=== PATIENT | female | born 1980 | race Caucasian/White ===

== ENCOUNTER 2019-07-16 14:17 | Emergency (ER) | payer SELFPAY ==
[2019-07-16 14:19] VITALS: BMI 26.5
--- NOTE | 2019-07-16 14:21 | ED_ITS ---
Entered by Nina Raman, acting as scribe for Horacio Mayer MD HPI - Psych General: Chief Complaint: Alcohol Stated Complaint: MHE Time Seen by Provider: 07/16/19 14:19 History of Present Illness: HPI Narrative: 38 yo female presents to ED with police. The patient will not answer any questions that was asked, except for correcting the officer of her correct address. The police stated the patient has been hostile - fighting and kicking the police. The officer stated the patient told police several times that she just wanted to end it. The police said they were called because the patient was in someone's back yard in [place] and when the police arrived, she began fighting. After they got the patient in the police car, the patient nearly kicked out the window of the car. The patient is under the influence of an unknown substance. complaint: altered mental status Onset (ago): hour(s) (1) Duration: constant Relieving factors: none Exacerbating factors: alcohol Context: recent alcohol abuse Associated symptoms: Reports depression and suicidal ideation Treatments prior to arrival: physical restraints Review of Systems Const: Denies: fever or chills Eyes: Denies: change in vision ENMT: Denies: throat pain or mouth pain Card: Denies: chest pain Resp: Denies: shortness of breath GI: Denies: abdominal pain, nausea, vomiting or diarrhea : Denies: difficulty urinating Musc: Denies: back pain or joint pain Skin/Breast: Denies: rash Neuro: Denies: headache Psych: Reports: depression and suicidal ideation Endo: Denies: excessive urination Kenny/Lymph: Denies: easy bruising All/Imm: Denies: hives PFSH ED PFSH: Statuses (acute, chronic, etc) shown below reflect problem list status as previously entered and may not be historically accurate Social History Smoking and tobacco status: current every day smoker Physical Exam Const: COMMON NORMALS: no apparent distress, oriented x3 and healthy appearing HENMT: COMMON NORMALS: normocephalic and external nose normal HEAD & SCALP: normocephalic NOSE: external nose normal Eye: COMMON NORMALS: PERRL PUPIL: Yes PERRL Neck/C-Spine: COMMON NORMALS: full ROM and no lymphadenopathy Chest: COMMONS NORMALS: inspection of chest normal Resp: COMMON NORMALS: normal respiratory effort, no use of accessory muscles and clear to auscultation bilaterally AUSCULTATION: clear to auscultation bilaterally Cardio: COMMON NORMALS: regular rate and regular rhythm RATE: regular rate RHYTHM: regular rhythm GI: COMMON NORMALS: normal to inspection, nondistended, normoactive bowel sounds, soft to palpation, non-tender and no masses PALPATION: Yes soft Back/Pelvis: THORACIC SPINE/UPPER BACK: Yes normal to inspection Extremity: COMMON NORMALS: normal to inspection, full ROM and normal capillary refill Neuro: COMMON NORMALS: oriented x3 Psych: COMMON NORMALS: cooperative OTHER: intoxicated Skin: COMMON NORMALS: no rashes or lesions noted GENERAL SKIN EXAM: no rashes or lesions noted MDM - Psych MDM Narrative: Medical decision making narrative: Patient presents with alcohol intoxication. Patient has not been suicidal or homicidal. Patient's mother came and picked her up and she is stable for discharge at this time. Lab Data: Labs: Lab Results 07/16/19 07/16/19 07/16/19 Range/Units 14:41 14:41 14:52 WBC 7.7 (4.0-10.0) 10^3/ uL RBC 4.71 (4.1-5.3) 10^6/u L Hgb 15.2 (11.5-15.3) g/dL Hct 44.3 (37.0-47.0) % MCV 94.1 (81-99) fL MCH 32.3 (28.0-34.0) pg MCHC 34.3 (30.0-36.0) g/dL RDW 12.0 L (12.1-15.1) % Plt Count 288 (130-400) 10^3/c mm MPV 9.6 (7.4-10.4) fL Neut % (Auto) 64.0 % Lymph % (Auto) 30.5 % Bailey % (Auto) 3.9 % Eos % (Auto) 0.8 % Baso % (Auto) 0.5 % Neut # (Auto) 5.0 (1.8-7.7) 10^3/u L Lymph # (Auto) 2.4 (0.8-4.8) 10^3/u L Bailey # (Auto) 0.3 (0.2-0.9) 10^3/u L Eos # (Auto) 0.1 (0.0-0.8) 10^3/u L Baso # (Auto) 0.0 (0.0-0.1) 10^3/u L Nucleated RBC % (a uto) 0 % Nucleated RBCs # 0.0 /100WBC Sodium (136-145) mmol/L Potassium (3.5-5.1) mmol/L Chloride (98-107) mmol/L Carbon Dioxide (22-29) mmol/L Anion Gap (5-19) BUN (6-20) mg/dL Creatinine (0.5-0.9) mg/dL GFR Calculation (90-130) mL/min Glucose (74-109) mg/dL Calcium (8.5-10.5) mg/dL Total Bilirubin (0.15-1.2) mg/dL AST (0-32) U/L ALT (0-33) U/L Alkaline Phosphata se (35-105) IU/L Total Protein (6.6-8.7) g/dL Albumin (3.5-5.2) g/dL Globulin (1.3-4.6) g/dL HCG, Qual Negative (Negative) Salicylates (3-10) mg/dL Urine Opiates Scre en Negative (Negative) ng/mL Acetaminophen (10-30) ug/mL Ur Barbiturates Sc reen Negative (Negative) ng/mL Ur Phencyclidine S crn Negative (Negative) ng/mL Ur Amphetamines Sc reen Negative (Negative) ng/mL U Benzodiazepines Scrn Negative (Negative) ng/mL Urine Cocaine Scre en Negative (Negative) ng/mL U Marijuana (THC) Screen Negative (Negative) ng/mL Ethyl Alcohol (0-10) mg/dL 07/16/19 Range/Units 14:52 WBC (4.0-10.0) 10^3/ uL RBC (4.1-5.3) 10^6/u L Hgb (11.5-15.3) g/dL Hct (37.0-47.0) % MCV (81-99) fL MCH (28.0-34.0) pg MCHC (30.0-36.0) g/dL RDW (12.1-15.1) % Plt Count (130-400) 10^3/c mm MPV (7.4-10.4) fL Neut % (Auto) % Lymph % (Auto) % Bailey % (Auto) % Eos % (Auto) % Baso % (Auto) % Neut # (Auto) (1.8-7.7) 10^3/u L Lymph # (Auto) (0.8-4.8) 10^3/u L Bailey # (Auto) (0.2-0.9) 10^3/u L Eos # (Auto) (0.0-0.8) 10^3/u L Baso # (Auto) (0.0-0.1) 10^3/u L Nucleated RBC % (a uto) % Nucleated RBCs # /100WBC Sodium 144 (136-145) mmol/L Potassium 3.3 L (3.5-5.1) mmol/L Chloride 108 H (98-107) mmol/L Carbon Dioxide 22 (22-29) mmol/L Anion Gap 17.3 (5-19) BUN 9 (6-20) mg/dL Creatinine 0.6 (0.5-0.9) mg/dL GFR Calculation 110.7 (90-130) mL/min Glucose 95 (74-109) mg/dL Calcium 10.2 (8.5-10.5) mg/dL Total Bilirubin 0.3 (0.15-1.2) mg/dL AST 18 (0-32) U/L ALT 15 (0-33) U/L Alkaline Phosphata se 58 (35-105) IU/L Total Protein 7.4 (6.6-8.7) g/dL Albumin 5.1 (3.5-5.2) g/dL Globulin 2.3 (1.3-4.6) g/dL HCG, Qual (Negative) Salicylates < 0.3 L (3-10) mg/dL Urine Opiates Scre en (Negative) ng/mL Acetaminophen < 5.0 L (10-30) ug/mL Ur Barbiturates Sc reen (Negative) ng/mL Ur Phencyclidine S crn (Negative) ng/mL Ur Amphetamines Sc reen (Negative) ng/mL U Benzodiazepines Scrn (Negative) ng/mL Urine Cocaine Scre en (Negative) ng/mL U Marijuana (THC) Screen (Negative) ng/mL Ethyl Alcohol 257 H (0-10) mg/dL Discharge Plan Discharge Patient Disposition: Home, Self-Care Clinical Impression: Alcoholic intoxication Qualifiers: Complication of substance-induced condition: uncomplicated Qualified Code(s): F10.920 - Alcohol use, unspecified with intoxication, uncomplicated Condition: Stable Prescriptions: No Action No Known Home Medications RF: 0 Discharge Orders: Discharge Order (Routine); Ordered 07/16/19 Ordered By: Horacio Mayer Referrals: Marco A Reyes FNP [Family Provider] - Discharge Diet: Advance as tolerated Discharge Activity: Resume usual activity Patient Instructions: Alcohol Intoxication Discharge Date/Time: 07/16/19 21:25 Coding Level of Care Code ED Accounts Receivable Processor for Ele Sepulveda The documentation recorded by the Danisha stephen Valerie R, accurately reflects the service I personally performed and the decisions made by Vinnie alvarado Korby, MD Jul 16, 2019 14:17
[2019-07-16 14:50] VITALS: O2SAT 100
[2019-07-16 14:59] LABS: Basophils % 0.5 %; Eosinophils # 0.1 10^3/uL (0.0-0.8); Eosinophils % 0.8 %; Hematocrit 44.3 % (37.0-47.0); Hemoglobin 15.2 g/dL (11.5-15.3); Lymphocytes # 2.4 10^3/uL (0.8-4.8); Lymphocytes % 30.5 %; Mean Corpuscular HGB Conc 34.3 g/dL (30.0-36.0); Mean Corpuscular Hemoglobin 32.3 pg (28.0-34.0); Mean Corpuscular Volume 94.1 fL (81-99); Mean Platelet Volume 9.6 fL (7.4-10.4); Monocytes # 0.3 10^3/uL (0.2-0.9); Monocytes % 3.9 %; Nucleated Red Blood Cells % 0 %; Platelet Count 288 10^3/cmm (130-400); Red Blood Count 4.71 10^6/uL (4.1-5.3); White Blood Count 7.7 10^3/uL (4.0-10.0)
[2019-07-16] MEDS: LORazepam 2 mg/mL INJ 1 mL 1 MG IM (15:14)
[2019-07-16 15:24] LABS: Alanine Aminotransferase 15 U/L (0-33); Albumin Level 5.1 g/dL (3.5-5.2); Alcohol Level 257 mg/dL (0-10); Alkaline Phosphatase 58 IU/L (35-105); Anion Gap 17.3 (5-19); Aspartate Amino Transferase 18 U/L (0-32); Blood Urea Nitrogen 9 mg/dL (6-20); Calcium 10.2 mg/dL (8.5-10.5); Carbon Dioxide 22 mmol/L (22-29); Chloride 108 mmol/L (98-107); Creatinine Clr Calc Pharmacy 115.4103; Globulin 2.3 g/dL (1.3-4.6); Glomerular Filtration Rate 110.7 mL/min (90-130); Glucose 95 mg/dL (74-109); Potassium 3.3 mmol/L (3.5-5.1); Sodium 144 mmol/L (136-145); Total Bilirubin 0.3 mg/dL (0.15-1.2); Total Protein 7.4 g/dL (6.6-8.7)
[2019-07-16 15:40] LABS: Acetaminophen < 5.0 ug/mL (10-30); Salicylate < 0.3 mg/dL (3-10)
[2019-07-16 15:54] LABS: HCG Qualitative Urine. Negative (Negative)
[2019-07-16 16:17] LABS: Amphetamines Screen Urine Negative (Negative); Barbiturates Screen Urine Negative (Negative); Benzodiazepines Screen Urine Negative (Negative); Cocaine Screen Urine Negative (Negative); Opiate Screen Urine Negative (Negative); PCP Screen Urine Negative (Negative); THC Screen Urine Negative (Negative)
--- NOTE | 2019-07-16 17:36 | PC.NURSE ---
pt awake, ambulating to restroom. ED Physician in room to speak with pt
[2019-07-16 21:25] VITALS: BP 107/59; PULSE 108; RESP 16; O2SAT 95
== END 2019-07-16 21:25 | disposition home or self-care (01) ==
PROVIDERS: Emergency Provider Emergency Medicine; Family Provider Nurse Practitioner Family
DX: F10.120 Alcohol abuse with intoxication, uncomplicated (principal); Y90.8 Blood alcohol level of 240 mg/100 ml or more; F17.210 Nicotine dependence, cigarettes, uncomplicated
CPT/HCPCS: 36415; 80053; 80307; 81025; 85025; 96372; 99282; J2060

== ENCOUNTER 2020-08-19 18:25 | Emergency (ER) | payer SELFPAY ==
--- NOTE | 2020-08-19 18:44 | ED_ITS ---
HPI - General Adult General: Chief complaint: Psychiatric Symptoms Stated complaint: ETOH, SI Time Seen by Provider: 08/19/20 18:41 Source: police Mode of arrival: other Limitations: altered mental status and physical limitation History of Present Illness: HPI narrative: Patient is a 39-year-old female who is apparently known to law enforcement and is brought in for intoxication and suicidal ideation. Law enforcement states that they were contacted regarding the patient for being drunk in the park. They picked up the patient from the park and had initially planned to take her to the holding tank to allow to sober however while in the police transport she began stating that she was suicidal and requested that the wall surface to air weapons officer kill her. Patient is visibly i ntoxicated on my exam. She is not cooperative with answering any questions and only complains about the mask on her face. Onset (ago): unknown Severity: severe Treatments prior to arrival: none Review of Systems General: Reports: ROS unobtainable due to mental status PFSH ED PFSH: Social History Smoking and tobacco status: current every day smoker Female Reproductive History: Date of last menstrual period: 06/18/19 Physical Exam Const: COMMON NORMALS: no acute distress and average body habitus GENERAL APPEARANCE: not cooperative, not well kempt and not in distress ORIENTATION/CONSCIOUSNESS: Yes awake OTHER: Poorly groomed 39-year-old female who is intoxicated HENMT: COMMON NORMALS: normocephalic and atraumatic HEAD & SCALP: normocephalic and atraumatic MOUTH: Normal oral and palatal mucosa present Eye: COMMON NORMALS: EOMs intact bilaterally Neck/C-Spine: GENERAL: Yes normal visual inspection Chest: COMMONS NORMALS: normal inspection of the chest Resp: COMMON NORMALS: normal respiratory effort, No retractions and No use of accessory muscles GI: COMMON NORMALS: Soft to palpation and non-tender PALPATION: Yes Soft to palpation Extremity: COMMON NORMALS: normal to inspection, full ROM and no pedal edema Psych: COMMON NORMALS: negative for cooperative APPEARANCE: No well kempt, Yes unkempt and Yes disheveled ATTITUDE: Yes uncooperative, Yes Belligerent attititude/behavior present and Yes agitated Skin: COMMON NORMALS: no rashes or lesions noted GENERAL SKIN EXAM: no rashes or lesions noted Course ED course: Patient is agitated and yelling constantly upon arrival. She will not provide any reasonable history. She is handcuffed from police. She was occasionally agitated and kicking at staff. Patient was given 10 mg of Haldol, 2 mg of Ativan, and 50 mg of Benadryl. I anticipate that she is intoxicated and will need to clinically sober for reevaluation of suicidality. Patient's blood alcohol is over 300. Patient is resting comfortably after rece iving calming medications. Patient will be turned over to Dr. Aly pending sober and reevaluation which will likely not occur until tomorrow morning. [facility] - General Adult Lab Data: Attestation: I reviewed the patient's lab results. Labs: Lab Results 08/19/20 08/19/20 08/19/20 Range/Units 19:20 19:20 19:22 WBC (4.0-10.0) 10^3/ uL RBC (4.1-5.3) 10^6/u L Hgb (11.5-15.3) g/dL Hct (37.0-47.0) % MCV (81-99) fL MCH (28.0-34.0) pg MCHC (30.0-36.0) g/dL RDW (12.1-15.1) % Plt Count (130-400) 10^3/c mm MPV (7.4-10.4) fL Neut % (Auto) % Lymph % (Auto) % Medina % (Auto) % Eos % (Auto) % Baso % (Auto) % Neut # (Auto) (1.8-7.7) 10^3/u L Lymph # (Auto) (0.8-4.8) 10^3/u L Medina # (Auto) (0.2-0.9) 10^3/u L Eos # (Auto) (0.0-0.8) 10^3/u L Baso # (Auto) (0.0-0.1) 10^3/u L Nucleated RBC % (a uto) % Nucleated RBCs # /100WBC Sodium (136-145) mmol/L Potassium (3.5-5.1) mmol/L Chloride (98-107) mmol/L Carbon Dioxide (22-29) mmol/L Anion Gap (5-19) BUN (6-20) mg/dL Creatinine (0.5-0.9) mg/dL GFR Calculation (90-130) mL/min Glucose (65-115) mg/dL Calculated Osmolal ity (285-295) mOsm/k g Calcium (8.5-10.5) mg/dL Total Bilirubin (0.15-1.2) mg/dL AST (0-32) U/L ALT (0-33) U/L Alkaline Phosphata se (35-105) IU/L Total Protein (6.6-8.7) g/dL Albumin (3.5-5.2) g/dL Globulin (1.3-4.6) g/dL TSH (0.27-4.20) uIU/ mL HCG, Qual Negative (Negative) Urine Color Straw (Yellow) Urine Appearance Clear (CLEAR) Urine pH 6.5 (5-7) Ur Specific Gravit y 1.005 (1.005-1.030) Urine Protein Neg (Negative) Urine Glucose (UA) Norm (Normal) Urine Ketones Negative (Negative) Urine Blood Neg (Negative) Urine Nitrate Negative (Negative) Urine Bilirubin Neg (Negative) Urine Urobilinogen Norm (Negative) mg/dL Ur Leukocyte Destini ase Negative (Negative) Salicylates (3-10) mg/dL Urine Opiates Scre en Negative (Negative) ng/mL Acetaminophen (10-30) ug/mL Ur Barbiturates Sc reen Negative (Negative) ng/mL Ur Phencyclidine S crn Negative (Negative) ng/mL Ur Amphetamines Sc reen Negative (Negative) ng/mL U Benzodiazepines Scrn Negative (Negative) ng/mL Urine Cocaine Scre en Negative (Negative) ng/mL U Marijuana (THC) Screen Negative (Negative) ng/mL Ethyl Alcohol (0-10) mg/dL 08/19/20 08/19/20 Range/Units 20:16 20:16 WBC 6.2 (4.0-10.0) 10^3/ uL RBC 4.70 (4.1-5.3) 10^6/u L Hgb 15.8 H (11.5-15.3) g/dL Hct 46.0 (37.0-47.0) % MCV 97.9 (81-99) fL MCH 33.6 (28.0-34.0) pg MCHC 34.3 (30.0-36.0) g/dL RDW 12.0 L (12.1-15.1) % Plt Count 268 (130-400) 10^3/c mm MPV 8.9 (7.4-10.4) fL Neut % (Auto) 47.9 % Lymph % (Auto) 43.3 % Medina % (Auto) 5.0 % Eos % (Auto) 2.6 % Baso % (Auto) 1.0 % Neut # (Auto) 3.00 (1.8-7.7) 10^3/u L Lymph # (Auto) 2.7 (0.8-4.8) 10^3/u L Medina # (Auto) 0.3 (0.2-0.9) 10^3/u L Eos # (Auto) 0.2 (0.0-0.8) 10^3/u L Baso # (Auto) 0.1 (0.0-0.1) 10^3/u L Nucleated RBC % (a uto) 0 % Nucleated RBCs # 0.0 /100WBC Sodium 146 H (136-145) mmol/L Potassium 3.9 (3.5-5.1) mmol/L Chloride 110 H (98-107) mmol/L Carbon Dioxide 22 (22-29) mmol/L Anion Gap 17.9 (5-19) BUN 7 (6-20) mg/dL Creatinine 0.6 (0.5-0.9) mg/dL GFR Calculation 110.2 (90-130) mL/min Glucose 74 (65-115) mg/dL Calculated Osmolal ity 299 H (285-295) mOsm/k g Calcium 9.0 (8.5-10.5) mg/dL Total Bilirubin 0.4 (0.15-1.2) mg/dL AST 23 (0-32) U/L ALT 17 (0-33) U/L Alkaline Phosphata se 59 (35-105) IU/L Total Protein 7.5 (6.6-8.7) g/dL Albumin 4.5 (3.5-5.2) g/dL Globulin 3.0 (1.3-4.6) g/dL TSH 1.40 (0.27-4.20) uIU/ mL HCG, Qual (Negative) Urine Color (Yellow) Urine Appearance (CLEAR) Urine pH (5-7) Ur Specific Gravit y (1.005-1.030) Urine Protein (Negative) Urine Glucose (UA) (Normal) Urine Ketones (Negative) Urine Blood (Negative) Urine Nitrate (Negative) Urine Bilirubin (Negative) Urine Urobilinogen (Negative) mg/dL Ur Leukocyte Destini ase (Negative) Salicylates < 0.3 L (3-10) mg/dL Urine Opiates Scre en (Negative) ng/mL Acetaminophen < 5.0 L (10-30) ug/mL Ur Barbiturates Sc reen (Negative) ng/mL Ur Phencyclidine S crn (Negative) ng/mL Ur Amphetamines Sc reen (Negative) ng/mL U Benzodiazepines Scrn (Negative) ng/mL Urine Cocaine Scre en (Negative) ng/mL U Marijuana (THC) Screen (Negative) ng/mL Ethyl Alcohol 328 H* (0-10) mg/dL Discharge Plan Discharge Clinical Impression: Alcohol intoxication Qualifiers: Complication of substance-induced condition: with unspecified complication Qualified Code(s): F10.929 - Alcohol use, unspecified with intoxication, unspecified Condition: Stable Prescriptions: No Action No Known Home Medications RF: 0 Coding Level of Care Code ED Classification Counselor for Jesug Fwd Exam Comprehensive
[2020-08-19 18:45] VITALS: BMI 21.2
[2020-08-19] MEDS: diphenhydrAMINE 50 mg/mL SDV 1mL IM (19:10)
[2020-08-19] MEDS: LORazepam 2 mg/mL INJ 1 mL IM (19:11)
[2020-08-19] MEDS: haloperidol inj 5 mg/mL INJ 1 mL 10 MG IM (19:11)
[2020-08-19 19:54] LABS: Add Urine Microscopic? NO
[2020-08-19 19:58] LABS: Bilirubin Urine Neg (Negative); Blood Urine Neg (Negative); Glucose Urine UA Norm (Normal); Ketones Urine Negative (Negative); Leukocyte Esterase Urine Negative (Negative); Nitrate Urine Negative (Negative); Protein Urine Neg (Negative); Specific Gravity, Urine 1.005 (1.005-1.030); Urine Appearance Clear (CLEAR); Urine Color Straw (Yellow); Urobilinogen Urine Norm (Negative); pH Urine 6.5 (5-7)
[2020-08-19 20:00] LABS: HCG Qualitative Urine. Negative (Negative)
[2020-08-19 20:07] LABS: Amphetamines Screen Urine Negative (Negative); Barbiturates Screen Urine Negative (Negative); Benzodiazepines Screen Urine Negative (Negative); Cocaine Screen Urine Negative (Negative); Opiate Screen Urine Negative (Negative); PCP Screen Urine Negative (Negative); THC Screen Urine Negative (Negative)
[2020-08-19 20:21] LABS: Basophils # 0.1 10^3/uL (0.0-0.1); Eosinophils # 0.2 10^3/uL (0.0-0.8); Eosinophils % 2.6 %; Hemoglobin 15.8 g/dL (11.5-15.3); Lymphocytes # 2.7 10^3/uL (0.8-4.8); Lymphocytes % 43.3 %; Mean Corpuscular HGB Conc 34.3 g/dL (30.0-36.0); Mean Corpuscular Hemoglobin 33.6 pg (28.0-34.0); Mean Corpuscular Volume 97.9 fL (81-99); Mean Platelet Volume 8.9 fL (7.4-10.4); Monocytes # 0.3 10^3/uL (0.2-0.9); Neutrophils % 47.9 %; Nucleated Red Blood Cells % 0 %; Platelet Count 268 10^3/cmm (130-400); White Blood Count 6.2 10^3/uL (4.0-10.0)
[2020-08-19 20:56] LABS: Alanine Aminotransferase 17 U/L (0-33); Albumin Level 4.5 g/dL (3.5-5.2); Alkaline Phosphatase 59 IU/L (35-105); Anion Gap 17.9 (5-19); Aspartate Amino Transferase 23 U/L (0-32); Blood Urea Nitrogen 7 mg/dL (6-20); Carbon Dioxide 22 mmol/L (22-29); Chloride 110 mmol/L (98-107); Glomerular Filtration Rate 110.2 mL/min (90-130); Glucose 74 mg/dL (65-115); Osmolality Calculated 299 mOsm/kg (285-295); Potassium 3.9 mmol/L (3.5-5.1); Sodium 146 mmol/L (136-145); Total Bilirubin 0.4 mg/dL (0.15-1.2); Total Protein 7.5 g/dL (6.6-8.7)
[2020-08-19 21:10] LABS: Acetaminophen < 5.0 ug/mL (10-30); Salicylate < 0.3 mg/dL (3-10)
[2020-08-19 21:11] LABS: Alcohol Level 328 mg/dL (0-10)
[2020-08-19 23:50] VITALS: BP 91/68; PULSE 95; RESP 16; O2SAT 99
[2020-08-20] VITALS: BP 91/68; PULSE 95; RESP 16; O2SAT 99
[2020-08-20 01:44] LABS: Alcohol Level 238 mg/dL (0-10)
[2020-08-20 05:09] LABS: Alcohol Level 144 mg/dL (0-10)
[2020-08-20 05:56] VITALS: BP 107/72; PULSE 87; RESP 16; TEMP 36.7; O2SAT 99
== END 2020-08-20 08:48 | disposition home or self-care (01) ==
PROVIDERS: Student in an Organized Health Care Education/Training Program; Emergency Provider Emergency Medicine
DX: F10.929 Alcohol use, unspecified with intoxication, unspecified (principal); Y90.8 Blood alcohol level of 240 mg/100 ml or more; F17.210 Nicotine dependence, cigarettes, uncomplicated
CPT/HCPCS: 12345; 80053; 80306; 80307; 81003; 81025; 84443; 85025; 96372; 99284; J1200; J1630; J2060

== ENCOUNTER 2020-10-03 18:21 | Emergency (ER) | payer SELFPAY ==
[2020-10-03 18:24] VITALS: BP 122/78; PULSE 110; RESP 18; TEMP 37.2; O2SAT 100; BMI 26.2
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
[2020-10-03 18:35] VITALS: O2SAT 98
[2020-10-03] MEDS: haloperidol inj 5 mg/mL INJ 1 mL IM (19:00)
[2020-10-03 19:19] LABS: Basophils # 0.1 10^3/uL (0.0-0.1); Basophils % 0.8 %; Eosinophils # 0.2 10^3/uL (0.0-0.8); Eosinophils % 2.9 %; Hematocrit 43.7 % (37.0-47.0); Hemoglobin 15.2 g/dL (11.5-15.3); Lymphocytes # 2.9 10^3/uL (0.8-4.8); Lymphocytes % 44.2 %; Mean Corpuscular HGB Conc 34.8 g/dL (30.0-36.0); Mean Corpuscular Hemoglobin 33.6 pg (28.0-34.0); Mean Corpuscular Volume 96.7 fL (81-99); Mean Platelet Volume 8.6 fL (7.4-10.4); Monocytes # 0.4 10^3/uL (0.2-0.9); Monocytes % 5.8 %; Neutrophils % 46.1 %; Nucleated Red Blood Cells % 0 %; Platelet Count 274 10^3/cmm (130-400); Red Blood Count 4.52 10^6/uL (4.1-5.3); Red Cell Distribution Width 11.8 % (12.1-15.1); White Blood Count 6.5 10^3/uL (4.0-10.0)
[2020-10-03] MEDS: sodium chloride 0.9% 1,000 ML 999 ML IV (19:21)
[2020-10-03 19:27] VITALS: BP 117/87; PULSE 91; RESP 18; O2SAT 99
[2020-10-03 19:32] LABS: Amphetamines Screen Urine Negative (Negative); Barbiturates Screen Urine Negative (Negative); Benzodiazepines Screen Urine Negative (Negative); Cocaine Screen Urine Negative (Negative); Opiate Screen Urine Negative (Negative); PCP Screen Urine Negative (Negative); THC Screen Urine Negative (Negative)
[2020-10-03 19:33] LABS: Alanine Aminotransferase 15 U/L (0-33); Albumin Level 4.7 g/dL (3.5-5.2); Alcohol Level 290 mg/dL (0-10); Alkaline Phosphatase 56 IU/L (35-105); Aspartate Amino Transferase 17 U/L (0-32); Blood Urea Nitrogen 9 mg/dL (6-20); Calcium 8.8 mg/dL (8.5-10.5); Carbon Dioxide 26 mmol/L (22-29); Chloride 108 mmol/L (98-107); Globulin 2.6 g/dL (1.3-4.6); Glomerular Filtration Rate 110.2 mL/min (90-130); Glucose 93 mg/dL (65-115); Osmolality Calculated 296 mOsm/kg (285-295); Sodium 144 mmol/L (136-145); Total Bilirubin 0.4 mg/dL (0.15-1.2); Total Protein 7.3 g/dL (6.6-8.7)
[2020-10-03 19:35] LABS: Acetaminophen < 5.0 ug/mL (10-30); Salicylate < 0.3 mg/dL (3-10)
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
[2020-10-03 23:12] VITALS: PULSE 80; RESP 16; O2SAT 96
--- NOTE | 2020-10-08 12:03 | DCPLANNER ---
interactive media project manager had message to speak with patient about getting established with a primary care physician. interactive media project manager called phone number [phone], unable to speak with patient at this time. interactive media project manager unable to leave a voicemail due to no voicemail box set up at this time.
== END 2020-10-03 23:15 | disposition home or self-care (01) ==
PROVIDERS: Emergency Medicine; Emergency Provider Family Medicine
DX: F10.129 Alcohol abuse with intoxication, unspecified (principal); Y90.8 Blood alcohol level of 240 mg/100 ml or more; F17.210 Nicotine dependence, cigarettes, uncomplicated
CPT/HCPCS: 80053; 80306; 80307; 85025; 96360; 96372; 99283; J1630; J7030

== ENCOUNTER 2021-10-13 17:58 | Inpatient (IN) | payer MEDICAID, SELFPAY ==
[2021-10-13 19:13] LABS: Basophils # 0.1 10^3/uL (0.0-0.1); Eosinophils # 0.2 10^3/uL (0.0-0.8); Eosinophils % 2.9 %; Hematocrit 44.2 % (37.0-47.0); Hemoglobin 15.6 g/dL (11.5-15.3); Lymphocytes # 3.1 10^3/uL (0.8-4.8); Lymphocytes % 42.5 %; Mean Corpuscular HGB Conc 35.3 g/dL (30.0-36.0); Mean Corpuscular Hemoglobin 33.1 pg (28.0-34.0); Mean Corpuscular Volume 93.8 fl (81-99); Mean Platelet Volume 8.7 fL (7.4-10.4); Monocytes # 0.5 10^3/uL (0.2-0.9); Monocytes % 6.9 %; Neutrophils # 3.34 10^3/uL (1.8-7.7); Neutrophils % 46.4 %; Nucleated Red Blood Cells % 0 %; Platelet Count 258 10^3/cmm (130-400); Red Blood Count 4.71 10^6/uL (4.1-5.3); Red Cell Distribution Width 12.1 % (12.1-15.1); White Blood Count 7.2 10^3/uL (4.0-10.0)
[2021-10-13 19:17] VITALS: BP 142/71; RESP 20; O2SAT 100
--- NOTE | 2021-10-13 19:25 | W.ED.PSYCHS ---
HPI - Psych General: Chief Complaint: Psychiatric Symptoms Stated Complaint: PSYCH EVAL Time Seen by Provider: 10/13/21 18:22 Source: patient and police History of Present Illness: 40-year-old female. She presents via law enforcement transport. By law enforcement history, she was naked in her neighbors yard. She was intoxicated. She had been laying down and the street as well. She also had told the family law legal assistant that she was going to kill him. She denies any recent illness. She admits to alcohol use, no other substances. On my exam, she is awake alert and talking. MD complaint: other Onset (ago): hour(s) Duration: constant History of same: No Relieving factors: none Exacerbating factors: alcohol Context: recent alcohol abuse Associated psychiatric symptoms: depression and delusions Associated symptoms: Reports delusions and depression; Deny auditory hallucinations or visual hallucinations If self harm: other (States that she has tried to kill herself 10 times per) Review of Systems Const: Denies: fever(s) ENMT: Denies: throat pain Card: Denies: chest pain or palpitations Resp: Denies: dyspnea, productive cough or non-productive cough GI: Denies: abdominal pain, nausea or vomiting Neuro: Denies: headache(s) Psych: Reports: depression; Denies: visual hallucinations or auditory hallucinations PFSH ED PFSH: Social History Smoking and tobacco status: current every day smoker Female Reproductive History: Date of last menstrual period: 06/18/19 Physical Exam Const: GENERAL APPEARANCE: disheveled and odor of alcohol detected HENMT: COMMON NORMALS: normocephalic, atraumatic and Normal external nose present HEAD & SCALP: normocephalic and atraumatic FACE & SINUS: normal facial exam and face symmetric NOSE: Normal external nose present and Normal nares present MOUTH: Normal oral and palatal mucosa present THROAT: posterior oropharynx normal Eye: COMMON NORMALS: Equal, round and reactive pupils present and EOMs intact bilaterally PUPIL: Yes Equal, round and reactive pupils present Neck/C-Spine: COMMON NORMALS: full ROM GENERAL: Yes trachea midline Resp: COMMON NORMALS: normal respiratory effort, No use of accessory muscles and clear to auscultation bilaterally AUSCULTATION: clear to auscultation bilaterally Cardio: COMMON NORMALS: regular rate and regular rhythm RATE: regular rate RHYTHM: regular rhythm GI: COMMON NORMALS: Normal to inspection, nondistended, normoactive bowel sounds present, Soft to palpation and non-tender PALPATION: Yes Soft to palpation Extremity: COMMON NORMALS: normal to inspection Neuro: STACEY COMA SCALE: document GCS findings Stacey coma scale eye opening: Spontaneous [place] coma scale verbal response: Orientated Stacey coma scale motor response: Obey commands [place] coma scale total score: 15 Psych: APPEARANCE: Yes unkempt ATTITUDE: Yes uncooperative ACTIVITY/MOTOR BEHAVIOR: Yes appropriate eye contact, Yes psychomotor agitation and Yes fidgeting SPEECH: Yes rapid MOOD & AFFECT: Yes irritable THOUGHT PROCESS: Circumstantial thought process present THOUGHT CONTENT: Yes delusions ATTENTION/CONCENTRATION: Yes attention grossly impaired and Yes concentration grossly impaired MEMORY/COGNITION: Yes memory grossly intact and Yes cognition grossly intact INSIGHT: Limited insight present (Psych) JUDGEMENT: Limited judgement present (Psych) Course Consultations: Consultation #1: minesh Time: 23:51 Vital Signs: Vital signs: Vital Signs Temperature 97.6 F 10/13/21 22:06 Pulse Rate 80 10/13/21 22:06 Respiratory Rate 16 10/13/21 22:06 Blood Pressure 120/51 10/13/21 22:06 Pulse Oximetry 99 10/13/21 22:06 [facility] - Psych Medical Decision Making Patient has been calm. No medications of had to be given for behavior. Laboratory is benign. Her initial alcohol level was 326, has fallen to 222 as of an hour ago. She is coherent. She is medically stable. Spoke with psychiatry, they are willing to admit. 96-hour hold paperwork has been filled out. Lab Data : 10/13/21 09:05 10/13/21 09:05 Laboratory Results WBC 7.2 10^3/uL (4.0-10.0) 10/13/21 09:05 RBC 4.71 10^6/uL (4.1-5.3) 10/13/21 09:05 Hgb 15.6 g/dL (11.5-15.3) H 10/13/21 09:05 Hct 44.2 % (37.0-47.0) 10/13/21 09:05 MCV 93.8 fl (81-99) 10/13/21 09:05 MCH 33.1 pg (28.0-34.0) 10/13/21 09:05 MCHC 35.3 g/dL (30.0-36.0) 10/13/21 09:05 RDW 12.1 % (12.1-15.1) 10/13/21 09:05 Plt Count 258 10^3/cmm (130-400) 10/13/21 09:05 MPV 8.7 fL (7.4-10.4) 10/13/21 09:05 Neut % (Auto) 46.4 % 10/13/21 09:05 Lymph % (Auto) 42.5 % 10/13/21 09:05 Gregory % (Auto) 6.9 % 10/13/21 09:05 Eos % (Auto) 2.9 % 10/13/21 09:05 Baso % (Auto) 1.0 % 10/13/21 09:05 Neut # (Auto) 3.34 10^3/uL (1.8-7.7) 10/13/21 09:05 Lymph # (Auto) 3.1 10^3/uL (0.8-4.8) 10/13/21 09:05 Gregory # (Auto) 0.5 10^3/uL (0.2-0.9) 10/13/21 09:05 Eos # (Auto) 0.2 10^3/uL (0.0-0.8) 10/13/21 09:05 Baso # (Auto) 0.1 10^3/uL (0.0-0.1) 10/13/21 09:05 Nucleated RBC % (auto) 0 % 10/13/21 09:05 Nucleated RBCs # 0.0 /100WBC 10/13/21 09:05 Sodium 145 mmol/L (136-145) 10/13/21 09:05 Potassium 3.9 mmol/L (3.5-5.1) 10/13/21 09:05 Chloride 111 mmol/L (98-107) H 10/13/21 09:05 Carbon Dioxide 21 mmol/L (22-29) L 10/13/21 09:05 Anion Gap 16.9 (5-19) 10/13/21 09:05 BUN 10 mg/dL (6-20) 10/13/21 09:05 Creatinine 0.6 mg/dL (0.5-0.9) 10/13/21 09:05 GFR Calculation 109.6 mL/min (90-130) 10/13/21 09:05 Glucose 82 mg/dL (65-115) 10/13/21 09:05 Calculated Osmolality 298 mOsm/kg (285-295) H 10/13/21 09:05 Calcium 8.5 mg/dL (8.5-10.5) 10/13/21 09:05 Total Bilirubin 0.3 mg/dL (0.15-1.2) 10/13/21 09:05 AST 21 U/L (0-32) 10/13/21 09:05 ALT 19 U/L (0-33) 10/13/21 09:05 Alkaline Phosphatase 57 IU/L (35-105) 10/13/21 09:05 Total Protein 7.1 g/dL (6.6-8.7) 10/13/21 09:05 Albumin 5.0 g/dL (3.5-5.2) 10/13/21 09:05 Globulin 2.1 g/dL (1.3-4.6) 10/13/21 09:05 HCG, Qual Negative (Negative) 10/13/21 19:20 Urine Color Yellow (Yellow) 10/13/21 19:20 Urine Appearance Clear (CLEAR) 10/13/21 19:20 Urine pH 5 (5-7) 10/13/21 19:20 Ur Specific [place] 1.005 (1.005-1.030) 10/13/21 19:20 Urine Protein Neg (Negative) 10/13/21 19:20 Urine Glucose (UA) Norm (Normal) 10/13/21 19:20 Urine Ketones Negative (Negative) 10/13/21 19:20 Urine Blood Neg (Negative) 10/13/21 19:20 Urine Nitrate Negative (Negative) 10/13/21 19:20 Urine Bilirubin Neg (Negative) 10/13/21 19:20 Urine Urobilinogen Norm mg/dL (Negative) 10/13/21 19:20 Ur Leukocyte Esterase Negative (Negative) 10/13/21 19:20 Salicylates < 0.3 mg/dL (3-10) L 10/13/21 09:05 Urine Opiates Screen Negative ng/mL (Negative) 10/13/21 19:20 Acetaminophen < 5.0 ug/mL (10-30) L 10/13/21 09:05 Ur Barbiturates Screen Negative ng/mL (Negative) 10/13/21 19:20 Ur Phencyclidine Scrn Negative ng/mL (Negative) 10/13/21 19:20 Ur Amphetamines Screen Negative ng/mL (Negative) 10/13/21 19:20 U Benzodiazepines Scrn Positive ng/mL (Negative) H 10/13/21 19:20 Urine Cocaine Screen Negative ng/mL (Negative) 10/13/21 19:20 U Marijuana (THC) Screen Positive ng/mL (Negative) H 10/13/21 19:20 Ethyl Alcohol 222 mg/dL (0-10) H 10/13/21 22:20 Discharge Plan Discharge Patient Disposition: Admitted As Inpatient Clinical Impression: Homicidal ideation, Alcohol intoxication Condition: Stable Prescriptions: No Action No Known Home Medications 0RF Coding Level of Care Code ED Ballistic Expert for Ele Fwd Exam Comprehensive
[2021-10-13 19:33] LABS: Alanine Aminotransferase 19 U/L (0-33); Alkaline Phosphatase 57 IU/L (35-105); Anion Gap 16.9 (5-19); Aspartate Amino Transferase 21 U/L (0-32); Blood Urea Nitrogen 10 mg/dL (6-20); Calcium 8.5 mg/dL (8.5-10.5); Carbon Dioxide 21 mmol/L (22-29); Chloride 111 mmol/L (98-107); Globulin 2.1 g/dL (1.3-4.6); Glomerular Filtration Rate 109.6 mL/min (90-130); Glucose 82 mg/dL (65-115); Osmolality Calculated 298 mOsm/kg (285-295); Potassium 3.9 mmol/L (3.5-5.1); Sodium 145 mmol/L (136-145); Total Bilirubin 0.3 mg/dL (0.15-1.2); Total Protein 7.1 g/dL (6.6-8.7)
[2021-10-13 19:34] LABS: HCG Qualitative Urine. Negative (Negative)
[2021-10-13 19:37] LABS: Add Urine Microscopic? NO; Charge for UA Resulting for Rev
[2021-10-13 19:39] LABS: Bilirubin Urine Neg (Negative); Blood Urine Neg (Negative); Glucose Urine UA Norm (Normal); Ketones Urine Negative (Negative); Leukocyte Esterase Urine Negative (Negative); Nitrate Urine Negative (Negative); Protein Urine Neg (Negative); Specific Gravity, Urine 1.005 (1.005-1.030); Urine Appearance Clear (CLEAR); Urine Color Yellow (Yellow); Urobilinogen Urine Norm (Negative); pH Urine 5 (5-7)
[2021-10-13 19:39] LABS: Salicylate < 0.3 mg/dL (3-10)
[2021-10-13 19:40] LABS: Acetaminophen < 5.0 ug/mL (10-30)
[2021-10-13 19:41] LABS: Alcohol Level 326 mg/dL (0-10)
[2021-10-13 19:48] LABS: Amphetamines Screen Urine Negative (Negative); Barbiturates Screen Urine Negative (Negative); Benzodiazepines Screen Urine Positive (Negative); Cocaine Screen Urine Negative (Negative); Opiate Screen Urine Negative (Negative); PCP Screen Urine Negative (Negative); THC Screen Urine Positive (Negative)
[2021-10-13 22:06] VITALS: BP 120/51; PULSE 80; RESP 16; TEMP 36.4; O2SAT 99
[2021-10-13 22:54] LABS: Alcohol Level 222 mg/dL (0-10)
[2021-10-14] MEDS: acetaminophen 500 mg Tablet 1000 MG PO (00:21)
[2021-10-14] MEDS: ondansetron 4 MG Tablet PO (00:21)
[2021-10-14 00:24] VITALS: BP 100/63; PULSE 80; RESP 18; O2SAT 95
[2021-10-14 00:27] VITALS: BP 100/63; PULSE 80; RESP 18; O2SAT 95
[2021-10-14 00:41] VITALS: BP 106/79; PULSE 79; RESP 18; TEMP 36.8; O2SAT 97
[2021-10-14] MEDS: trazodone 50 mg Tablet PO ×2 (01:09→20:29)
--- NOTE | 2021-10-14 01:28 | PC.ADMIT ---
Admission Note: 40-year-old female. She presents via law enforcement transport. By law enforcement history, she was naked in her neighbors yard. She was intoxicated. She had been laying down and the street as well. She also had told the admiralty lawyer that she was going to kill him. She denies any recent illness. She admits to alcohol use, no other substances. On my exam, she is awake alert and talking. Patient is here on a 96 hour hold related to etoh abuse. Ed BAL was 326 at 0900 on 10/13. BAL 222 at 2230. She states that she drinks alot. She states she does 4-6 shooters of anything-recently tequila or vodka in a 1-1/2 hour of time then passes out. She says that she does not know why she drinks. She states that she can go without the alcohol if she is taking opiods but when they run out she is back on the booze. She said she would do meth if she knew where to get it. She states that she works at [employer] and has to walk a mile to get to work. She has 4 children ages 23/20/16/12. The 20 year old lives with her. The childrens father takes care of the younger children. The patient,Stacey Ritchie,40 y/o, was given written information regarding hospital policies, unit procedures and contact persons. Patient's smoking status: current every day smoker. Vital Signs - 8 hr 10/13/21 19:17 10/13/21 22:06 10/14/21 00:24 Temperature 97.6 F Pulse Rate 80 80 Respiratory Rate 20 H 16 18 Blood Pressure 142/71 120/51 100/63 Pulse Oximetry 100 99 95 10/14/21 00:27 10/14/21 00:41 Temperature 98.3 F Pulse Rate 80 79 Respiratory Rate 18 18 Blood Pressure 100/63 106/79 Pulse Oximetry 95 97
[2021-10-14 06:00] VITALS: BP 97/62; PULSE 78; RESP 17; TEMP 37.3; O2SAT 96
[2021-10-14] MEDS: multivitamin therapeutic Tablet 1 TAB PO (09:40)
[2021-10-14] MEDS: folic acid 1 mg Tablet PO (09:40)
[2021-10-14] MEDS: thiamine 100 mg Tablet PO (09:40)
[2021-10-14] MEDS: nicotine 2 mg Gum BUCCAL ×5 (10:52→20:25)
[2021-10-14] MEDS: acetaminophen 325 mg Tablet 650 MG PO (12:11)
[2021-10-14 14:00] VITALS: BP 115/63; PULSE 84; RESP 18; TEMP 36.8; O2SAT 93
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
[2021-10-14 20:44] VITALS: BP 110/61; PULSE 68; RESP 16; TEMP 37.3; O2SAT 97
[2021-10-15] MEDS: nicotine 2 mg Gum BUCCAL ×5 (04:57→15:32)
[2021-10-15 06:00] VITALS: BP 119/50; PULSE 85; RESP 16; TEMP 37.1; O2SAT 98
[2021-10-15] MEDS: thiamine 100 mg Tablet PO (09:49)
[2021-10-15] MEDS: folic acid 1 mg Tablet PO (09:49)
[2021-10-15] MEDS: multivitamin therapeutic Tablet 1 TAB PO (09:49)
[2021-10-15] MEDS: blistex lip oint 7 gm Tube 1 APPLIC TOPICAL (13:19)
[2021-10-15 14:00] VITALS: BP 125/66; PULSE 84; RESP 18; TEMP 36.7; O2SAT 100
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
[2021-10-15 17:33] VITALS: BP 125/66; PULSE 84; RESP 18; TEMP 36.7; O2SAT 100
== END 2021-10-15 18:00 | disposition home or self-care (01) | DRG 897 ==
LOC: ER 23:53 → NP 10-14 06:07
PROVIDERS: Admitting Provider Psychiatry & Neurology Psychiatry; Emergency Provider Emergency Medicine; Visit Provider Psychiatry & Neurology Psychiatry
DX: F10.129 Alcohol abuse with intoxication, unspecified (principal); Y90.8 Blood alcohol level of 240 mg/100 ml or more; R45.850 Homicidal ideations; F43.25 Adjustment disorder with mixed disturbance of emotions and conduct
CPT/HCPCS: 36415; 80053; 80306; 80307; 81003; 81025; 85025; 97150; 97165; 99285; Q0162